=== PATIENT | female | born 1975 | race Caucasian/White ===

== ENCOUNTER 2022-11-17 09:33 | Outpatient (CLI) | payer OTHER, MEDICAID ==
[~2022-11-17 09:33] MED LIST: AMOX500C2 PO; DEC4 PO; DIVA-74 PO; LEVE500T9 PO; LEVE750T4 PO
== END 2022-11-18 18:34 | disposition home or self-care (01) ==
LOC: SMI 09:33
DX: G10 Huntington's disease (principal); M54.50 Low back pain, unspecified
CPT/HCPCS: 72141; 72148

== ENCOUNTER 2023-12-01 13:18 | Inpatient (IN) | payer OTHER, MEDICAID ==
[~2023-12-01] VITALS: Ht 162.6 cm; Wt 83.9 kg
[2023-12-01 13:20] VITALS: BP_SYST 176; PULSE 90; RESP 20; TEMP 97; O2SAT 97
[2023-12-01] MEDS: levETIRAcetam 500 MG IV PREMIX 100 ML IV ONE (14:12)
[2023-12-01] MEDS ORDERED: AMMONIA 1 EA TOWELETTE INH ONE (15:41)
[2023-12-01] MEDS ORDERED: SOLI5TAB7 PO (15:52)
[2023-12-01] MEDS ORDERED: PANT40TA45 PO (15:52)
[2023-12-01] MEDS ORDERED: ESTR42.511 VG (15:52)
[2023-12-01] MEDS ORDERED: EREN70AU SUBCUT (15:52)
[2023-12-01 15:54] LABS: BASOPHILS % (AUTO) 0.5 % (0.0-2.0); EOSINOPHILS # (AUTO) 0.1 K/uL (0.0-0.4); EOSINOPHILS % (AUTO) 0.5 % (0.0-4.0); HEMATOCRIT 47.4 % (36-48); HEMOGLOBIN 15.7 g/dL (12.0-16.0); LYMPHOCYTES # (AUTO) 1.2 K/uL (1.0-5.5); LYMPHOCYTES % (AUTO) 11.1 % (20.5-51.5); MEAN CORPUSCULAR HEMOGLOBIN 30 pg (27-31); MEAN CORPUSCULAR HGB CONC 33 % (32-36); MEAN CORPUSCULAR VOLUME 90 fL (79.0-98.0); MONOCYTES # (AUTO) 0.7 K/uL (0.0-1.0); NEUTROPHILS % (AUTO) 81.9 % (40.0-70.0); PLATELET COUNT (AUTO) 267 K/uL (130-430); RED BLOOD CELL COUNT(AUTO) 5.28 MIL/uL (4.2-6.2); RED CELL DISTRIBUTION WIDTH 13.8 % (9.0-15.0)
[2023-12-01 15:56] LABS: CALCIUM 9.7 mg/dL (8.4-11.0); CREATININE 0.75 mg/dL (0.55-1.30)
[2023-12-01 15:59] LABS: POTASSIUM 6.2 mmol/L (3.5-5.1)
[2023-12-01] MEDS: LORazepam 2 MG/ML VIAL IVP ONE (16:14)
[2023-12-01] MEDS: levETIRAcetam 500 MG in NS 100 ML IV ONE (16:15)
[2023-12-01 17:15] VITALS: O2SAT 100
[2023-12-01 17:20] VITALS: BP_SYST 128; PULSE 88; RESP 16; TEMP 98.2
[2023-12-01] MEDS: DIVALPROEX SODIUM 500 MG TABLET( DEPAKOTE) PO SCH (18:00)
[2023-12-01] MEDS ORDERED: DIPHTH,PERTUSS(ACELL),TET VAC 0.5 ML VIAL (Tdap) I.M. ONE (18:15)
[2023-12-01 18:41] VITALS: BP_SYST 120; PULSE 88; RESP 17; TEMP 98.2; O2SAT 100
[2023-12-01 18:54] LABS: ALBUMIN 3.4 g/dL (3.4-4.8); CALCIUM 8.3 mg/dL (8.4-11.0); CREATININE 0.66 mg/dL (0.55-1.30); POTASSIUM 4.5 mmol/L (3.5-5.1); TOTAL BILIRUBIN 0.4 mg/dL (0.0-1.0); TOTAL PROTEIN, SERUM 6.4 g/dL (6.4-8.3)
[2023-12-01 20:03] VITALS: BP_SYST 101; PULSE 83; RESP 20; TEMP 98.1; O2SAT 98
[2023-12-01] MEDS: AMOXICILLIN 500 MG CAPSULE PO SCH (21:25)
[2023-12-01] MEDS: levETIRAcetam 500 MG TABLET PO SCH (21:25)
[2023-12-01 21:45] LABS: BILIRUBIN,URINE NEGATIVE (NEGATIVE); BLOOD, URINE NEGATIVE (NEGATIVE); CLARITY/URINE CLEAR (CLEAR); COLOR,URINE YELLOW (YELLOW); GLUCOSE,URINE NEGATIVE (NEGATIVE); KETONES,URINE TRACE (NEGATIVE); LEUKOCYTE ESTERASE ,URINE NEGATIVE (NEGATIVE); NITRITE, URINE NEGATIVE (NEGATIVE); PROTEIN URINE NEGATIVE (NEGATIVE); UROBILINOGEN,URINE 0.2 (0.2-1.0)
[2023-12-02] VITALS (7 sets, daily range): BP systolic 95–110; PULSE 67–95; RESP 16–19; TEMP 97.1–98.5; O2SAT 94–96
[2023-12-02 05:31] LABS: BASOPHILS # (AUTO) 0.1 K/uL (0.0-0.2); EOSINOPHILS # (AUTO) 0.1 K/uL (0.0-0.4); EOSINOPHILS % (AUTO) 2.5 % (0.0-4.0); HEMATOCRIT 36.7 % (36-48); HEMOGLOBIN 12.4 g/dL (12.0-16.0); LYMPHOCYTES # (AUTO) 1.7 K/uL (1.0-5.5); LYMPHOCYTES % (AUTO) 32.5 % (20.5-51.5); MEAN CORPUSCULAR HEMOGLOBIN 30 pg (27-31); MEAN CORPUSCULAR HGB CONC 34 % (32-36); MEAN CORPUSCULAR VOLUME 88 fL (79.0-98.0); MONOCYTES # (AUTO) 0.6 K/uL (0.0-1.0); MONOCYTES % (AUTO) 11.4 % (1.7-9.3); NEUTROPHILS # (AUTO) 2.8 K/uL (1.8-7.7); NEUTROPHILS % (AUTO) 52.6 % (40.0-70.0); PLATELET COUNT (AUTO) 277 K/uL (130-430); RED BLOOD CELL COUNT(AUTO) 4.16 MIL/uL (4.2-6.2); RED CELL DISTRIBUTION WIDTH 13.7 % (9.0-15.0); WHITE BLOOD COUNT (AUTO) 5.4 K/uL (4.8-10.8)
[2023-12-02 06:24] LABS: ALBUMIN 2.9 g/dL (3.4-4.8); CALCIUM 8.7 mg/dL (8.4-11.0); CREATININE 0.67 mg/dL (0.55-1.30); POTASSIUM 4.2 mmol/L (3.5-5.1); TOTAL BILIRUBIN 0.5 mg/dL (0.0-1.0)
[2023-12-02] MEDS: PANTOPRAZOLE SODIUM 40 MG TAB PO SCH (08:30)
[2023-12-02] MEDS: oxyBUTYnin chloride 5 MG TABLET PO SCH (08:30)
[2023-12-02] MEDS ORDERED: [UNRECOGNIZED DRUG - REMARK] PO SCH (09:00)
[2023-12-02] MEDS ORDERED: ACETAMINOPHEN 325 MG TABLET PO PRN (09:45)
[2023-12-02] MEDS ORDERED: NALOXONE HCL 0.4 MG/ML AMP (NARCAN) IVP PRN (09:45)
[2023-12-02] MEDS: HYDROcodone/ACETAMIN 5-325 MG TAB (NORCO/ VICODIN) PO PRN (12:12)
[2023-12-03 00:59] VITALS: BP_SYST 98; PULSE 88; RESP 18; TEMP 98.2
[2023-12-03 07:52] VITALS: BP_SYST 99; PULSE 94; RESP 18; TEMP 97.8; O2SAT 98
[2023-12-03 07:57] VITALS: O2SAT 98
[2023-12-03] MEDS ORDERED: GADOBENATE DIMEGLUMINE 529 MG/ML, 5 ML VIAL IV ONE (09:06)
[2023-12-03] MEDS ORDERED: LACO100T2 PO (11:26)
[2023-12-03] MEDS ORDERED: PREG75CA PO (11:26)
[2023-12-03] MEDS ORDERED: LORA-258 PO (11:26)
[2023-12-03 11:39] VITALS: BP_SYST 105; PULSE 78; RESP 17; TEMP 98.2; O2SAT 97
[2023-12-03] MEDS: LORazepam 2 MG/ML VIAL IVP PRN (12:16)
[2023-12-03] MEDS: LACOSAMIDE 100 MG TABLET PO ONE (14:22)
[2023-12-03 16:43] VITALS: BP_SYST 97; PULSE 90; RESP 17; TEMP 98; O2SAT 97
[2023-12-03] MEDS: DIVALPROEX SODIUM 500 MG TABLET( DEPAKOTE) PO ONE (17:35)
[2023-12-03 20:00] VITALS: BP_SYST 108; PULSE 75; RESP 18; TEMP 97.6; O2SAT 95
[2023-12-03] MEDS: PREGABALIN 75 MG CAPSULE (LYRICA) PO SCH (21:23)
[2023-12-03] MEDS: DIVALPROEX SODIUM 500 MG TABLET( DEPAKOTE) PO SCH (21:23)
[2023-12-03] MEDS: LACOSAMIDE 100 MG TABLET PO SCH (21:26)
[2023-12-04 00:04] VITALS: BP_SYST 114; PULSE 77; RESP 16; TEMP 98.7; O2SAT 96
[2023-12-04 04:22] LABS: BASOPHILS # (AUTO) 0.1 K/uL (0.0-0.2); EOSINOPHILS # (AUTO) 0.1 K/uL (0.0-0.4); EOSINOPHILS % (AUTO) 2.9 % (0.0-4.0); HEMATOCRIT 36.2 % (36-48); HEMOGLOBIN 12.3 g/dL (12.0-16.0); LYMPHOCYTES # (AUTO) 2.1 K/uL (1.0-5.5); LYMPHOCYTES % (AUTO) 42.3 % (20.5-51.5); MEAN CORPUSCULAR HEMOGLOBIN 30 pg (27-31); MEAN CORPUSCULAR HGB CONC 34 % (32-36); MEAN CORPUSCULAR VOLUME 88 fL (79.0-98.0); MONOCYTES # (AUTO) 0.6 K/uL (0.0-1.0); MONOCYTES % (AUTO) 12.1 % (1.7-9.3); NEUTROPHILS # (AUTO) 2.1 K/uL (1.8-7.7); NEUTROPHILS % (AUTO) 41.7 % (40.0-70.0); PLATELET COUNT (AUTO) 267 K/uL (130-430); RED BLOOD CELL COUNT(AUTO) 4.12 MIL/uL (4.2-6.2); RED CELL DISTRIBUTION WIDTH 13.9 % (9.0-15.0)
[2023-12-04 04:37] LABS: ALBUMIN 2.8 g/dL (3.4-4.8); CALCIUM 8.5 mg/dL (8.4-11.0); CREATININE 0.69 mg/dL (0.55-1.30); POTASSIUM 4.1 mmol/L (3.5-5.1); TOTAL BILIRUBIN 0.5 mg/dL (0.0-1.0); TOTAL PROTEIN, SERUM 6.1 g/dL (6.4-8.3)
[2023-12-04 08:00] VITALS: BP_SYST 102; PULSE 87; RESP 15; TEMP 97.9; O2SAT 95
[2023-12-04] MEDS: ONDANSETRON HCL 4 MG/2 ML VIAL IVP PRN (14:24)
[2023-12-04 20:00] VITALS: BP_SYST 109; PULSE 68; RESP 18; TEMP 98; O2SAT 95
[2023-12-05] VITALS (7 sets, daily range): BP systolic 90–132; PULSE 74–93; RESP 16–20; TEMP 97.9–98.6; O2SAT 94–98
[2023-12-05 05:26] LABS: BASOPHILS % (AUTO) 0.8 % (0.0-2.0); EOSINOPHILS # (AUTO) 0.1 K/uL (0.0-0.4); EOSINOPHILS % (AUTO) 3.4 % (0.0-4.0); HEMATOCRIT 37.4 % (36-48); HEMOGLOBIN 12.5 g/dL (12.0-16.0); LYMPHOCYTES # (AUTO) 1.9 K/uL (1.0-5.5); LYMPHOCYTES % (AUTO) 44.5 % (20.5-51.5); MEAN CORPUSCULAR HEMOGLOBIN 30 pg (27-31); MEAN CORPUSCULAR HGB CONC 34 % (32-36); MEAN CORPUSCULAR VOLUME 89 fL (79.0-98.0); MONOCYTES # (AUTO) 0.5 K/uL (0.0-1.0); NEUTROPHILS # (AUTO) 1.7 K/uL (1.8-7.7); NEUTROPHILS % (AUTO) 40.3 % (40.0-70.0); PLATELET COUNT (AUTO) 273 K/uL (130-430); RED BLOOD CELL COUNT(AUTO) 4.19 MIL/uL (4.2-6.2); RED CELL DISTRIBUTION WIDTH 13.3 % (9.0-15.0); WHITE BLOOD COUNT (AUTO) 4.3 K/uL (4.8-10.8)
[2023-12-05 05:46] LABS: ALBUMIN 2.8 g/dL (3.4-4.8); CALCIUM 8.7 mg/dL (8.4-11.0); CREATININE 0.73 mg/dL (0.55-1.30); TOTAL BILIRUBIN 0.4 mg/dL (0.0-1.0); TOTAL PROTEIN, SERUM 6.1 g/dL (6.4-8.3)
[2023-12-06 00:57] VITALS: BP_SYST 96; PULSE 72; RESP 18; TEMP 98.4; O2SAT 96
[2023-12-06 08:00] VITALS: O2SAT 97
[2023-12-06 08:10] VITALS: BP_SYST 104; PULSE 94; RESP 16; TEMP 97.9; O2SAT 97
[2023-12-06 10:59] VITALS: BP_SYST 96; PULSE 78; RESP 16; TEMP 97.8; O2SAT 99
[2023-12-06] MEDS ORDERED: LEVE500T9 PO (15:41)
[2023-12-06] MEDS ORDERED: DIVA500T2 PO (15:41)
[2023-12-06] MEDS ORDERED: LACO100T2 PO ×2 (15:41)
[2023-12-06 15:45] VITALS: BP_SYST 113; PULSE 77; RESP 16; TEMP 97.9; O2SAT 98
[2023-12-06 16:02] VITALS: BP_SYST 113; PULSE 77; RESP 14; O2SAT 98
== END 2023-12-06 17:30 | disposition home health service (06) | DRG 101 ==
LOC: SED 13:18 → STU 16:01
PROVIDERS: ADMIT Internal Medicine; ATTEND Internal Medicine
PROC: 0HQ0XZZ Repair Scalp Skin, External Approach (ICD-10-PCS; 2023-12-01)
PROC: 4A10X4Z Monitoring of Central Nervous Electrical Activity, External Approach (ICD-10-PCS; principal; 2023-12-02)
DX: G40.909 Epilepsy, unspecified, not intractable, without status epilepticus (principal); E44.1 Mild protein-calorie malnutrition; E87.5 Hyperkalemia; S01.01XA Laceration without foreign body of scalp, initial encounter; E66.9 Obesity, unspecified; Z68.31 Body mass index [BMI] 31.0-31.9, adult; X58.XXXA Exposure to other specified factors, initial encounter; Y93.89 Activity, other specified; Y92.89 Other specified places as the place of occurrence of the external cause; Y99.8 Other external cause status; Z88.1 Allergy status to other antibiotic agents
CPT/HCPCS: 36415; 70450-TC; 70553; 80048; 80053; 80164; 81001; 81003; 82542; 83605; 83735; 85025; 90715; 95816; 96365; 96367; 96375; 97110-GP; 97112-GP; 97116-GP; 97530-GP; 99285; A9577; G0378; J1953; J2060; J2405